=== PATIENT | male | born 1960 | race Caucasian/White ===

== ENCOUNTER 2022-07-29 13:17 | Emergency (ER) | payer OTHER, MEDICARE ==
[2022-07-29] MEDS ORDERED: LIDOCAINE 5% TOPICAL PATCH TP ONE (13:30)
[2022-07-29 13:39] VITALS: BP 137/90; PULSE 71; RESP 20; TEMP 98.3; BMI 36.2
[2022-07-29] MEDS ORDERED: LIDOCAINE 5% TOPICAL PATCH ONE (13:49)
[2022-07-29] MEDS ORDERED: LIDOCAINE PATCH REMOVAL MC SCH (22:00)
== END 2022-07-29 13:58 | disposition home or self-care (01) ==
LOC: FER 13:17
DX: M54.50 Low back pain, unspecified (principal); G89.29 Other chronic pain; Z76.0 Encounter for issue of repeat prescription
CPT/HCPCS: 99283-25

== ENCOUNTER 2022-08-22 18:55 | Emergency (ER) | payer OTHER, MEDICARE ==
[2022-08-22 19:01] VITALS: BP 191/113; PULSE 63; RESP 20; TEMP 98.2; BMI 37.0
[2022-08-22] MEDS ORDERED: TETRACAINE 0.5% OPHTH SOLN 2 ML BOTTLE ONE (19:14)
[2022-08-22] MEDS ORDERED: ACETAMINOPHEN 325 MG TABLET (FP) PO ONE (19:35)
[2022-08-22] MEDS ORDERED: ACETAMINOPHEN 325 MG TABLET (FP) ONE (19:41)
[2022-08-22] MEDS ORDERED: oxyCODONE HCL 5 MG TABLET PO ONE (19:53)
[2022-08-22] MEDS ORDERED: TOBRAMYCIN/DEXAMETHASONE OPHTH. OINTMENT 1 TUBE ONE (19:53)
[2022-08-22] MEDS ORDERED: SULFAMETHOXAZOLE/TRIMETHOPRIM 800MG/160MG D.S. TABLET PO ONE (19:54)
[2022-08-22] MEDS ORDERED: TOBRAMYCIN 0.3% OPHTH SOLN 5 ML BOTTLE OD ONE (19:54)
[2022-08-22] MEDS ORDERED: TOBRAMYCIN/DEXAMETHASONE OPHTH. OINTMENT 1 TUBE OD ONE (19:54)
[2022-08-22] MEDS ORDERED: oxyCODONE HCL 5 MG TABLET ONE (19:56)
[2022-08-22] MEDS ORDERED: TOBRAMYCIN 0.3% OPHTH SOLN 5 ML BOTTLE ONE (19:56)
[2022-08-22] MEDS ORDERED: SULFAMETHOXAZOLE/TRIMETHOPRIM 800MG/160MG D.S. TABLET ONE (19:59)
== END 2022-08-22 20:03 | disposition home or self-care (01) ==
LOC: FER 18:55
DX: H57.11 Ocular pain, right eye (principal); H00.021 Hordeolum internum right upper eyelid
CPT/HCPCS: 76512; 99284-25

== ENCOUNTER 2022-09-09 13:28 | Emergency (ER) | payer OTHER, MEDICARE ==
[2022-09-09 13:48] VITALS: BP 158/101; PULSE 98; RESP 18; TEMP 98; BMI 36.9
[2022-09-09] MEDS ORDERED: HYDROmorphone HCL 2 MG TABLET PO ONE ×2 (13:51→14:35)
[2022-09-09] MEDS ORDERED: HYDROmorphone HCL 2 MG TABLET ONE ×2 (13:56→14:40)
== END 2022-09-09 14:50 | disposition home or self-care (01) ==
LOC: FER 13:28
DX: S39.012A Strain of muscle, fascia and tendon of lower back, initial encounter (principal); X50.0XXA Overexertion from strenuous movement or load, initial encounter
CPT/HCPCS: 72100-TC-FY; 81003; 81015; 99284-25

== ENCOUNTER 2022-09-15 11:29 | Emergency (ER) | payer OTHER, MEDICARE ==
[2022-09-15 11:44] VITALS: BP 182/99; PULSE 67; RESP 18; TEMP 98.3; BMI 36.9
== END 2022-09-15 12:55 | disposition home or self-care (01) ==
LOC: FER 11:29
DX: M54.50 Low back pain, unspecified (principal); M96.1 Postlaminectomy syndrome, not elsewhere classified
CPT/HCPCS: 99283-25

== ENCOUNTER 2022-09-15 19:31 | Emergency (ER) | payer OTHER, MEDICARE ==
[2022-09-15] MEDS ORDERED: HYDROmorphone HCL 2 MG TABLET PO ONE (19:33)
[2022-09-15 19:44] VITALS: BP 190/116; PULSE 70; RESP 18; TEMP 98.7; BMI 36.9
[2022-09-15] MEDS ORDERED: HYDROmorphone HCL 2 MG TABLET ONE (19:44)
== END 2022-09-15 20:00 | disposition home or self-care (01) ==
LOC: FER 19:31
DX: M54.50 Low back pain, unspecified (principal); G89.29 Other chronic pain; F11.90 Opioid use, unspecified, uncomplicated
CPT/HCPCS: 99283-25

== ENCOUNTER 2022-10-01 13:40 | Emergency (ER) | payer OTHER, MEDICARE ==
[2022-10-01 13:51] VITALS: BMI 36.8
[2022-10-01] MEDS ORDERED: LIDOCAINE 5% TOPICAL PATCH TP ONE (13:55)
[2022-10-01] MEDS ORDERED: oxyCODONE HCL 5 MG TABLET PO ONE (13:55)
[2022-10-01] MEDS ORDERED: ACETAMINOPHEN 500 MG TABLET (FP) PO ONE (13:55)
[2022-10-01] MEDS ORDERED: METHOCARBAMOL 500 MG TABLET PO ONE (13:58)
[2022-10-01] MEDS ORDERED: ACETAMINOPHEN 500 MG TABLET (FP) ONE (14:00)
[2022-10-01] MEDS ORDERED: LIDOCAINE 5% TOPICAL PATCH ONE (14:01)
[2022-10-01] MEDS ORDERED: METHOCARBAMOL 500 MG TABLET ONE (14:01)
[2022-10-01] MEDS ORDERED: oxyCODONE HCL 5 MG TABLET ONE (14:01)
[2022-10-01 14:43] VITALS: BP 180/120; PULSE 86; RESP 16; TEMP 98.2
[2022-10-01] MEDS ORDERED: LIDOCAINE PATCH REMOVAL MC SCH (22:00)
== END 2022-10-01 15:16 | disposition home or self-care (01) ==
LOC: FER 13:40
DX: F11.90 Opioid use, unspecified, uncomplicated (principal); M54.50 Low back pain, unspecified
CPT/HCPCS: 99283-25

== ENCOUNTER 2022-10-11 20:08 | Emergency (ER) | payer OTHER, MEDICARE ==
[2022-10-11 20:35] VITALS: BP 149/100; PULSE 77; RESP 20; TEMP 98.5; BMI 36.6
[2022-10-11] MEDS ORDERED: HYDROmorphone HCl 2 MG/ML VIAL IM ONE (21:28)
[2022-10-11] MEDS ORDERED: HYDROmorphone HCl 2 MG/ML VIAL ONE (21:32)
== END 2022-10-11 21:57 | disposition home or self-care (01) ==
LOC: FER 20:08
PROC: 3E023GC Introduction of Other Therapeutic Substance into Muscle, Percutaneous Approach (ICD-10-PCS; principal; 2022-10-11)
DX: M54.50 Low back pain, unspecified (principal); M96.1 Postlaminectomy syndrome, not elsewhere classified; Z79.891 Long term (current) use of opiate analgesic
CPT/HCPCS: 99284-25

== ENCOUNTER 2022-10-29 15:37 | Emergency (ER) | payer OTHER, MEDICARE ==
[2022-10-29] MEDS ORDERED: HYDROmorphone HCl 2 MG/ML VIAL IM ONE (15:55)
[2022-10-29] MEDS ORDERED: HYDROmorphone HCl 2 MG/ML VIAL ONE (16:16)
== END 2022-10-29 17:04 | disposition home or self-care (01) ==
LOC: FER 15:37
PROC: 3E023GC Introduction of Other Therapeutic Substance into Muscle, Percutaneous Approach (ICD-10-PCS; principal; 2022-10-29)
DX: M54.50 Low back pain, unspecified (principal); S39.012A Strain of muscle, fascia and tendon of lower back, initial encounter; G89.29 Other chronic pain; X58.XXXA Exposure to other specified factors, initial encounter
CPT/HCPCS: 99284-25

== ENCOUNTER 2022-10-30 02:01 | Emergency (ER) | payer OTHER, MEDICARE ==
[2022-10-30 02:12] VITALS: BP 122/82; PULSE 62; RESP 16; TEMP 98.1; BMI 34.3
== END 2022-10-30 02:21 | disposition home or self-care (01) ==
LOC: FER 02:01
DX: M54.50 Low back pain, unspecified (principal); Z79.01 Long term (current) use of anticoagulants
CPT/HCPCS: 99283-25

== ENCOUNTER 2022-10-30 20:09 | Emergency (ER) | payer OTHER, MEDICARE ==
[2022-10-30 20:29] VITALS: RESP 18; BMI 34.4
[2022-10-30] MEDS ORDERED: HYDROmorphone HCl 2 MG/ML VIAL IM ONE (21:17)
[2022-10-30] MEDS ORDERED: HYDROmorphone HCl 2 MG/ML VIAL ONE (21:18)
[2022-10-30] MEDS ORDERED: LIDOCAINE 5% TOPICAL PATCH TP ONE (21:20)
[2022-10-30] MEDS ORDERED: LIDOCAINE 5% TOPICAL PATCH ONE (21:23)
[2022-10-30 21:43] VITALS: BP 158/103; PULSE 81; TEMP 98.9
[2022-10-30] MEDS ORDERED: LIDOCAINE PATCH REMOVAL MC ONE (22:00)
== END 2022-10-30 22:00 | disposition home or self-care (01) ==
LOC: FER 20:09
PROC: 3E023GC Introduction of Other Therapeutic Substance into Muscle, Percutaneous Approach (ICD-10-PCS; principal; 2022-10-30)
DX: M54.50 Low back pain, unspecified (principal); G89.29 Other chronic pain
CPT/HCPCS: 99284-25

== ENCOUNTER 2022-11-07 12:29 | Emergency (ER) | payer OTHER, MEDICARE ==
[2022-11-07 12:43] VITALS: BP 169/100; PULSE 81; RESP 18; TEMP 98.2; BMI 36.8
[2022-11-07] MEDS ORDERED: oxyCODONE HCL 5 MG TABLET PO ONE ×2 (13:10→13:15)
[2022-11-07] MEDS ORDERED: oxyCODONE HCL 5 MG TABLET ONE ×2 (13:14→13:15)
== END 2022-11-07 13:35 | disposition home or self-care (01) ==
LOC: FER 12:29
DX: M54.9 Dorsalgia, unspecified (principal); G89.29 Other chronic pain
CPT/HCPCS: 99283-25

== ENCOUNTER 2022-12-30 00:20 | Emergency (ER) | payer OTHER, MEDICARE ==
[2022-12-30 00:36] VITALS: TEMP 98.5; BMI 36.8
[2022-12-30] MEDS ORDERED: HYDROmorphone HCl 2 MG/ML VIAL IM STA (00:41)
[2022-12-30] MEDS ORDERED: LIDOCAINE 5% TOPICAL PATCH ONE (00:41)
[2022-12-30] MEDS ORDERED: HYDROmorphone HCl 2 MG/ML VIAL ONE (00:41)
[2022-12-30] MEDS ORDERED: LIDOCAINE 5% TOPICAL PATCH TP ONE (00:42)
[2022-12-30 01:14] VITALS: BP 154/94; PULSE 78; RESP 16
[2022-12-30] MEDS ORDERED: LIDOCAINE PATCH REMOVAL MC ONE (12:00)
== END 2022-12-30 01:23 | disposition home or self-care (01) ==
LOC: FER 00:20
PROC: 3E023GC Introduction of Other Therapeutic Substance into Muscle, Percutaneous Approach (ICD-10-PCS; principal; 2022-12-30)
DX: M54.9 Dorsalgia, unspecified (principal); M96.1 Postlaminectomy syndrome, not elsewhere classified; G89.29 Other chronic pain; Z79.891 Long term (current) use of opiate analgesic
CPT/HCPCS: 99284-25

== ENCOUNTER 2023-01-04 22:05 | Emergency (ER) | payer OTHER, MEDICARE ==
[2023-01-04 22:19] VITALS: PULSE 90; RESP 20; TEMP 98; BMI 36.8
[2023-01-04] MEDS ORDERED: HYDROmorphone HCl 2 MG/ML VIAL IM ONE (22:28)
[2023-01-04] MEDS ORDERED: HYDROmorphone HCl 2 MG/ML VIAL ONE (22:38)
[2023-01-04 23:33] VITALS: BP 138/102
== END 2023-01-04 23:36 | disposition home or self-care (01) ==
LOC: FER 22:05
PROC: 3E023GC Introduction of Other Therapeutic Substance into Muscle, Percutaneous Approach (ICD-10-PCS; principal; 2023-01-04)
DX: M54.50 Low back pain, unspecified (principal)
CPT/HCPCS: 99284-25

== ENCOUNTER 2023-01-17 21:41 | Emergency (ER) | payer OTHER, MEDICARE ==
[2023-01-17 21:53] VITALS: BP 160/94; PULSE 68; RESP 20; TEMP 97.9
[2023-01-17] MEDS ORDERED: HYDROmorphone HCl 2 MG/ML VIAL IM ONE (21:54)
[2023-01-17] MEDS ORDERED: HYDROmorphone HCl 2 MG/ML VIAL ONE (21:56)
== END 2023-01-17 22:30 | disposition home or self-care (01) ==
LOC: FER 21:41 → SUPCPDRO 21:41 → FER 22:30
PROC: 3E023GC Introduction of Other Therapeutic Substance into Muscle, Percutaneous Approach (ICD-10-PCS; principal; 2023-01-17)
DX: M54.50 Low back pain, unspecified (principal); F11.20 Opioid dependence, uncomplicated
CPT/HCPCS: 99284-25

== ENCOUNTER 2023-02-09 03:33 | Emergency (ER) | payer OTHER, MEDICARE ==
[2023-02-09] MEDS ORDERED: HYDROmorphone HCl 2 MG/ML VIAL IM STA (03:53)
[2023-02-09 03:57] VITALS: BP 179/110; PULSE 75; RESP 18; TEMP 98.7; BMI 24.3
[2023-02-09] MEDS ORDERED: HYDROmorphone HCl 2 MG/ML VIAL ONE (03:59)
== END 2023-02-09 04:10 | disposition home or self-care (01) ==
LOC: FER 03:33
PROC: 3E023GC Introduction of Other Therapeutic Substance into Muscle, Percutaneous Approach (ICD-10-PCS; principal; 2023-02-09)
DX: M54.50 Low back pain, unspecified (principal)
CPT/HCPCS: 99284-25

== ENCOUNTER 2023-02-20 21:41 | Emergency (ER) | payer OTHER, MEDICARE ==
[2023-02-20] MEDS ORDERED: LIDOCAINE PATCH REMOVAL MC SCH (22:00)
[2023-02-20 22:01] VITALS: BP 116/73; PULSE 67; RESP 16; TEMP 98.2; BMI 36.8
[2023-02-20] MEDS ORDERED: LIDOCAINE 5% TOPICAL PATCH TP ONE (22:15)
[2023-02-20] MEDS ORDERED: HYDROmorphone HCl 2 MG/ML VIAL IM ONE (22:16)
[2023-02-20] MEDS ORDERED: HYDROmorphone HCL/PF 1 MG/ML VIAL ONE (22:22)
[2023-02-20] MEDS ORDERED: LIDOCAINE 5% TOPICAL PATCH ONE (22:22)
== END 2023-02-20 22:49 | disposition home or self-care (01) ==
LOC: FER 21:41
PROC: 3E023GC Introduction of Other Therapeutic Substance into Muscle, Percutaneous Approach (ICD-10-PCS; principal; 2023-02-20)
DX: M54.9 Dorsalgia, unspecified (principal); G89.29 Other chronic pain; F11.90 Opioid use, unspecified, uncomplicated
CPT/HCPCS: 99284-25

== ENCOUNTER 2023-02-23 12:02 | Emergency (ER) | payer OTHER, MEDICARE ==
[2023-02-23] MEDS ORDERED: HYDROmorphone HCl 2 MG/ML VIAL IM ONE (12:40)
[2023-02-23 12:41] VITALS: BP 167/101; PULSE 65; RESP 18; TEMP 98.7; BMI 36.8
[2023-02-23] MEDS ORDERED: HYDROmorphone HCl 2 MG/ML VIAL ONE (12:44)
== END 2023-02-23 13:48 | disposition home or self-care (01) ==
LOC: FER 12:02
PROC: 3E023GC Introduction of Other Therapeutic Substance into Muscle, Percutaneous Approach (ICD-10-PCS; principal; 2023-02-23)
DX: M54.9 Dorsalgia, unspecified (principal); G89.18 Other acute postprocedural pain
CPT/HCPCS: 99284-25

== ENCOUNTER 2023-02-24 11:02 | Emergency (ER) | payer OTHER, MEDICARE ==
[2023-02-24 11:12] VITALS: BP 179/108; PULSE 65; RESP 18; TEMP 99; BMI 36.8
[2023-02-24] MEDS ORDERED: HYDROmorphone HCl 2 MG/ML VIAL IM ONE (12:27)
[2023-02-24] MEDS ORDERED: HYDROmorphone HCl 2 MG/ML VIAL ONE (12:34)
== END 2023-02-24 13:59 | disposition home or self-care (01) ==
LOC: FER 11:02
PROC: 3E023GC Introduction of Other Therapeutic Substance into Muscle, Percutaneous Approach (ICD-10-PCS; principal; 2023-02-24)
DX: M54.50 Low back pain, unspecified (principal)
CPT/HCPCS: 99284-25

== ENCOUNTER 2023-02-25 12:03 | Emergency (ER) | payer OTHER, MEDICARE ==
[2023-02-25 12:08] VITALS: BP 168/104; PULSE 67; RESP 18; TEMP 98; BMI 36.8
[2023-02-25] MEDS ORDERED: HYDROmorphone HCl 2 MG/ML VIAL IM ONE (12:11)
[2023-02-25] MEDS ORDERED: HYDROmorphone HCl 2 MG/ML VIAL ONE (12:16)
== END 2023-02-25 12:27 | disposition home or self-care (01) ==
LOC: FER 12:03
PROC: 3E023GC Introduction of Other Therapeutic Substance into Muscle, Percutaneous Approach (ICD-10-PCS; principal; 2023-02-25)
DX: M54.50 Low back pain, unspecified (principal); G89.29 Other chronic pain
CPT/HCPCS: 99284-25

== ENCOUNTER 2023-02-26 11:55 | Emergency (ER) | payer OTHER, MEDICARE ==
[2023-02-26] MEDS ORDERED: HYDROmorphone HCl 2 MG/ML VIAL IM ONE (11:59)
[2023-02-26 12:18] VITALS: BP 155/68; PULSE 66; RESP 20; TEMP 98.7; BMI 36.6
[2023-02-26] MEDS ORDERED: HYDROmorphone HCl 2 MG/ML VIAL ONE (12:19)
== END 2023-02-26 12:25 | disposition home or self-care (01) ==
LOC: FER 11:55
PROC: 3E023GC Introduction of Other Therapeutic Substance into Muscle, Percutaneous Approach (ICD-10-PCS; principal; 2023-02-26)
DX: M54.42 Lumbago with sciatica, left side (principal); G89.29 Other chronic pain; K08.89 Other specified disorders of teeth and supporting structures
CPT/HCPCS: 99284-25

== ENCOUNTER 2023-03-02 07:35 | Emergency (ER) | payer OTHER, MEDICARE ==
[2023-03-02 07:51] VITALS: BP 155/93; PULSE 66; RESP 18; TEMP 98.2; BMI 36.8
[2023-03-02] MEDS ORDERED: oxyCODONE HCL 5 MG TABLET PO ONE (07:55)
[2023-03-02] MEDS ORDERED: oxyCODONE HCL 5 MG TABLET ONE (08:02)
== END 2023-03-02 08:27 | disposition home or self-care (01) ==
LOC: FER 07:35
DX: M54.9 Dorsalgia, unspecified (principal); F11.20 Opioid dependence, uncomplicated
CPT/HCPCS: 99283-25

== ENCOUNTER 2023-03-03 09:51 | Emergency (ER) | payer OTHER, MEDICARE ==
[2023-03-03 10:00] VITALS: BP 168/92; PULSE 66; RESP 17; TEMP 98.6; BMI 36.8
[2023-03-03] MEDS ORDERED: HYDROmorphone HCl 2 MG/ML VIAL IM ONE (10:09)
[2023-03-03] MEDS ORDERED: HYDROmorphone HCl 2 MG/ML VIAL ONE (10:20)
== END 2023-03-03 11:00 | disposition home or self-care (01) ==
LOC: FER 09:51
PROC: 3E023GC Introduction of Other Therapeutic Substance into Muscle, Percutaneous Approach (ICD-10-PCS; principal; 2023-03-03)
DX: M54.50 Low back pain, unspecified (principal)
CPT/HCPCS: 99284-25

== ENCOUNTER 2023-03-05 19:57 | Emergency (ER) | payer OTHER, MEDICARE ==
[2023-03-05 20:04] VITALS: BP 158/105; PULSE 89; RESP 18; TEMP 98.1; BMI 36.8
[2023-03-05] MEDS ORDERED: HYDROmorphone HCl 2 MG/ML VIAL ONE (21:14)
[2023-03-05] MEDS ORDERED: HYDROmorphone HCl 2 MG/ML VIAL IM ONE (21:16)
== END 2023-03-05 21:50 | disposition home or self-care (01) ==
LOC: FER 19:57
PROC: 3E023GC Introduction of Other Therapeutic Substance into Muscle, Percutaneous Approach (ICD-10-PCS; principal; 2023-03-05)
DX: M54.50 Low back pain, unspecified (principal)
CPT/HCPCS: 99284-25

== ENCOUNTER 2023-03-07 03:49 | Emergency (ER) | payer OTHER, MEDICARE ==
[2023-03-07 03:53] VITALS: BP 165/89; PULSE 98; RESP 18; TEMP 98.5; BMI 36.8
[2023-03-07] MEDS ORDERED: oxyCODONE HCL 5 MG TABLET PO ONE (04:05)
[2023-03-07] MEDS ORDERED: LIDOCAINE 5% TOPICAL PATCH TP ONE (04:05)
[2023-03-07] MEDS ORDERED: LIDOCAINE 5% TOPICAL PATCH ONE (04:12)
[2023-03-07] MEDS ORDERED: oxyCODONE HCL 5 MG TABLET ONE (04:12)
[2023-03-07] MEDS ORDERED: LIDOCAINE PATCH REMOVAL MC SCH (22:00)
== END 2023-03-07 04:55 | disposition home or self-care (01) ==
LOC: FER 03:49
DX: M54.50 Low back pain, unspecified (principal); G89.29 Other chronic pain; G47.00 Insomnia, unspecified
CPT/HCPCS: 99283-25

== ENCOUNTER 2023-03-19 21:42 | Emergency (ER) | payer OTHER, MEDICARE ==
[2023-03-19 21:53] VITALS: BP 155/91; PULSE 70; RESP 16; TEMP 98.6; BMI 36.9
[2023-03-19] MEDS ORDERED: HYDROmorphone HCl 2 MG/ML VIAL IM STA (22:08)
[2023-03-19] MEDS ORDERED: LIDOCAINE 5% TOPICAL PATCH TP ONE (22:09)
[2023-03-19] MEDS ORDERED: HYDROmorphone HCl 2 MG/ML VIAL ONE (22:11)
[2023-03-19] MEDS ORDERED: LIDOCAINE 5% TOPICAL PATCH ONE (22:12)
[2023-03-20] MEDS ORDERED: LIDOCAINE PATCH REMOVAL MC ONE (22:00)
== END 2023-03-19 22:19 | disposition home or self-care (01) ==
LOC: FER 21:42
PROC: 3E023GC Introduction of Other Therapeutic Substance into Muscle, Percutaneous Approach (ICD-10-PCS; principal; 2023-03-19)
DX: M54.50 Low back pain, unspecified (principal); M96.1 Postlaminectomy syndrome, not elsewhere classified
CPT/HCPCS: 99284-25

== ENCOUNTER 2023-03-29 11:44 | Emergency (ER) | payer OTHER, MEDICARE ==
[2023-03-29] MEDS ORDERED: HYDROmorphone HCl 2 MG/ML VIAL IM ONE (11:59)
[2023-03-29] MEDS ORDERED: HYDROmorphone HCl 2 MG/ML VIAL ONE (12:00)
[2023-03-29 12:17] VITALS: BP 110/87; PULSE 62; RESP 18; TEMP 98.3; BMI 36.9
[2023-03-29] MEDS ORDERED: LIDOCAINE 5% TOPICAL PATCH TP ONE (12:20)
[2023-03-29] MEDS ORDERED: LIDOCAINE 5% TOPICAL PATCH ONE (12:27)
[2023-03-29] MEDS ORDERED: LIDOCAINE PATCH REMOVAL MC ONE (22:00)
== END 2023-03-29 12:54 | disposition home or self-care (01) ==
LOC: FER 11:44 → SUPCPDRO 11:44 → FER 12:54
PROC: 3E023GC Introduction of Other Therapeutic Substance into Muscle, Percutaneous Approach (ICD-10-PCS; principal; 2023-03-29)
DX: M54.50 Low back pain, unspecified (principal); M96.1 Postlaminectomy syndrome, not elsewhere classified; F11.90 Opioid use, unspecified, uncomplicated
CPT/HCPCS: 99284-25

== ENCOUNTER 2023-04-01 00:24 | Emergency (ER) | payer OTHER, MEDICARE ==
[2023-04-01 00:31] VITALS: BP 178/106; PULSE 65; RESP 16; TEMP 97.9; BMI 37.5
[2023-04-01] MEDS ORDERED: ACETAMINOPHEN 325 MG TABLET (FP) PO ONE (00:49)
[2023-04-01] MEDS ORDERED: LIDOCAINE 5% TOPICAL PATCH TP ONE (00:50)
[2023-04-01] MEDS ORDERED: ACETAMINOPHEN 325 MG TABLET (FP) ONE (00:53)
[2023-04-01] MEDS ORDERED: LIDOCAINE 5% TOPICAL PATCH ONE (00:53)
[2023-04-01] MEDS ORDERED: LIDOCAINE PATCH REMOVAL MC SCH (22:00)
== END 2023-04-01 01:06 | disposition home or self-care (01) ==
LOC: FER 00:24
DX: M54.50 Low back pain, unspecified (principal)
CPT/HCPCS: 99283-25

== ENCOUNTER 2023-04-16 23:16 | Emergency (ER) | payer OTHER, MEDICARE ==
[2023-04-16] MEDS ORDERED: LIDOCAINE 5% TOPICAL PATCH ONE (23:30)
[2023-04-16] MEDS: LIDOCAINE PATCH REMOVAL MC SCH (23:34)
[2023-04-16] MEDS: LIDOCAINE 5% TOPICAL PATCH TP ONE (23:34)
[2023-04-16 23:40] VITALS: BP 181/118; PULSE 75; RESP 18; TEMP 98.5; BMI 37.5
[2023-04-16] MEDS ORDERED: HYDROmorphone HCl 2 MG/ML VIAL ONE (23:47)
[2023-04-16] MEDS: HYDROmorphone HCl 2 MG/ML VIAL IM ONE (23:49)
== END 2023-04-17 00:27 | disposition home or self-care (01) ==
LOC: FER 23:16
PROC: 3E023GC Introduction of Other Therapeutic Substance into Muscle, Percutaneous Approach (ICD-10-PCS; principal; 2023-04-16)
DX: M54.9 Dorsalgia, unspecified (principal)
CPT/HCPCS: 99284-25

== ENCOUNTER 2023-04-23 20:36 | Emergency (ER) | payer OTHER, MEDICARE ==
[2023-04-23 20:58] VITALS: BP 170/102; PULSE 70; RESP 19; TEMP 98.6; BMI 37.5
[2023-04-23] MEDS ORDERED: HYDROmorphone HCl 2 MG/ML VIAL ONE (21:11)
[2023-04-23] MEDS: HYDROmorphone HCl 2 MG/ML VIAL IM STA (21:14)
== END 2023-04-23 21:20 | disposition home or self-care (01) ==
LOC: FER 20:36
PROC: 3E023GC Introduction of Other Therapeutic Substance into Muscle, Percutaneous Approach (ICD-10-PCS; principal; 2023-04-23)
DX: M54.50 Low back pain, unspecified (principal); G89.29 Other chronic pain
CPT/HCPCS: 99284-25

== ENCOUNTER 2023-04-24 22:40 | Emergency (ER) | payer OTHER, MEDICARE ==
[2023-04-24 22:51] VITALS: BP 139/89; PULSE 78; RESP 18; TEMP 99; BMI 35.6
[2023-04-24] MEDS ORDERED: oxyCODONE HCL 5 MG TABLET ONE (23:08)
[2023-04-24] MEDS ORDERED: CYCLOBENZAPRINE HCL 5 MG TABLET ONE (23:08)
[2023-04-24] MEDS: oxyCODONE HCL 5 MG TABLET PO ONE (23:11)
== END 2023-04-24 23:34 | disposition home or self-care (01) ==
LOC: FER 22:40
DX: M96.1 Postlaminectomy syndrome, not elsewhere classified (principal); F11.90 Opioid use, unspecified, uncomplicated; M54.50 Low back pain, unspecified
CPT/HCPCS: 99283-25

== ENCOUNTER 2023-05-20 07:06 | Emergency (ER) | payer OTHER, MEDICARE ==
[2023-05-20 07:16] VITALS: BP 138/74; PULSE 74; RESP 18; TEMP 97.9; BMI 35.2
[2023-05-20] MEDS ORDERED: LIDOCAINE 5% TOPICAL PATCH ONE (07:43)
[2023-05-20] MEDS ORDERED: cloNIDine HCL 0.1 MG TABLET ONE (07:43)
[2023-05-20] MEDS: cloNIDine HCL 0.1 MG TABLET PO ONE (07:44)
[2023-05-20] MEDS: LIDOCAINE 5% TOPICAL PATCH TP ONE (07:45)
[2023-05-20] MEDS ORDERED: LIDOCAINE PATCH REMOVAL MC ONE (22:00)
== END 2023-05-20 07:52 | disposition home or self-care (01) ==
LOC: FER 07:06
DX: F11.93 Opioid use, unspecified with withdrawal (principal)
CPT/HCPCS: 99283-25

== ENCOUNTER 2023-05-22 07:34 | Emergency (ER) | payer OTHER, MEDICARE ==
[2023-05-22 07:49] VITALS: BP 165/75; PULSE 86; RESP 20; TEMP 98.3; BMI 32.5
[2023-05-22] MEDS ORDERED: HYDROmorphone HCl 2 MG/ML VIAL ONE (08:39)
[2023-05-22] MEDS: HYDROmorphone HCl 2 MG/ML VIAL IM ONE (08:59)
== END 2023-05-22 08:58 | disposition home or self-care (01) ==
LOC: FER 07:34
PROC: 3E023GC Introduction of Other Therapeutic Substance into Muscle, Percutaneous Approach (ICD-10-PCS; principal; 2023-05-22)
DX: M54.50 Low back pain, unspecified (principal); G89.29 Other chronic pain; M96.1 Postlaminectomy syndrome, not elsewhere classified
CPT/HCPCS: 99284-25

== ENCOUNTER 2023-05-26 00:39 | Emergency (ER) | payer OTHER, MEDICARE ==
[2023-05-26 00:59] VITALS: BP 136/95; PULSE 80; RESP 16; TEMP 98.5; BMI 34.3
== END 2023-05-26 01:29 | disposition home or self-care (01) ==
LOC: FER 00:39
DX: M54.50 Low back pain, unspecified (principal); G89.29 Other chronic pain
CPT/HCPCS: 99283-25

== ENCOUNTER 2023-06-04 20:20 | Emergency (ER) | payer OTHER, MEDICARE ==
[2023-06-04] MEDS ORDERED: HYDROmorphone HCl 2 MG/ML VIAL ONE (20:36)
[2023-06-04] MEDS ORDERED: ONDANSETRON *ODT* 4 MG TABLET ONE (20:36)
[2023-06-04] MEDS: HYDROmorphone HCl 2 MG/ML VIAL IM ONE (20:40)
[2023-06-04] MEDS: ONDANSETRON *ODT* 4 MG TABLET SL ONE (20:41)
[2023-06-04 20:43] VITALS: BP 147/97; PULSE 73; RESP 18; TEMP 98.1; BMI 21.2
== END 2023-06-04 20:45 | disposition home or self-care (01) ==
LOC: FER 20:20
PROC: 3E023GC Introduction of Other Therapeutic Substance into Muscle, Percutaneous Approach (ICD-10-PCS; principal; 2023-06-04)
DX: M54.50 Low back pain, unspecified (principal); G89.29 Other chronic pain
CPT/HCPCS: 96372; 99284-25; Q0162

== ENCOUNTER 2023-06-15 11:00 | Emergency (ER) | payer OTHER, MEDICARE ==
[2023-06-15 11:06] VITALS: BP 150/100; PULSE 65; RESP 20; TEMP 98.3; BMI 34.2
[2023-06-15] MEDS ORDERED: HYDROmorphone HCl 2 MG/ML VIAL ONE (11:17)
[2023-06-15] MEDS: HYDROmorphone HCl 2 MG/ML VIAL IM ONE (11:22)
== END 2023-06-15 11:29 | disposition home or self-care (01) ==
LOC: FER 11:00
PROC: 3E023GC Introduction of Other Therapeutic Substance into Muscle, Percutaneous Approach (ICD-10-PCS; principal; 2023-06-15)
DX: M54.50 Low back pain, unspecified (principal); G89.29 Other chronic pain
CPT/HCPCS: 99284-25

== ENCOUNTER 2023-06-16 05:52 | Emergency (ER) | payer OTHER, MEDICARE ==
[2023-06-16 06:01] VITALS: BP 130/100; PULSE 87; RESP 18; TEMP 98.2; BMI 34.2
[2023-06-16] MEDS ORDERED: HYDROmorphone HCl 2 MG/ML VIAL ONE (06:09)
[2023-06-16] MEDS: HYDROmorphone HCl 2 MG/ML VIAL IM STA (06:11)
== END 2023-06-16 06:56 | disposition home or self-care (01) ==
LOC: FER 05:52
PROC: 3E023NZ Introduction of Analgesics, Hypnotics, Sedatives into Muscle, Percutaneous Approach (ICD-10-PCS; principal; 2023-06-16)
DX: R10.9 Unspecified abdominal pain (principal); N20.0 Calculus of kidney
CPT/HCPCS: 99284-25

== ENCOUNTER 2023-06-21 16:13 | Emergency (ER) | payer OTHER, MEDICARE ==
[2023-06-21] MEDS ORDERED: HYDROmorphone HCl 2 MG/ML VIAL ONE (16:33)
[2023-06-21 16:36] VITALS: BP 130/90; PULSE 84; RESP 18; TEMP 98.3; BMI 33.7
[2023-06-21] MEDS: HYDROmorphone HCl 2 MG/ML VIAL IM ONE (16:37)
== END 2023-06-21 16:40 | disposition home or self-care (01) ==
LOC: FER 16:13
PROC: 3E023GC Introduction of Other Therapeutic Substance into Muscle, Percutaneous Approach (ICD-10-PCS; principal; 2023-06-21)
DX: M96.1 Postlaminectomy syndrome, not elsewhere classified (principal); M54.50 Low back pain, unspecified; G89.29 Other chronic pain
CPT/HCPCS: 99284-25

== ENCOUNTER 2023-06-24 12:39 | Emergency (ER) | payer OTHER, MEDICARE ==
[2023-06-24 12:47] VITALS: BP 115/85; PULSE 73; RESP 20; TEMP 98.2; BMI 32.8
[2023-06-24] MEDS ORDERED: HYDROmorphone HCl 2 MG/ML VIAL ONE (13:08)
[2023-06-24] MEDS: HYDROmorphone HCl 2 MG/ML VIAL IM ONE (13:12)
== END 2023-06-24 13:35 | disposition home or self-care (01) ==
LOC: FER 12:39
PROC: 3E023GC Introduction of Other Therapeutic Substance into Muscle, Percutaneous Approach (ICD-10-PCS; principal; 2023-06-24)
DX: R10.9 Unspecified abdominal pain (principal)
CPT/HCPCS: 99284-25

== ENCOUNTER 2023-07-02 22:56 | Emergency (ER) | payer OTHER, MEDICARE ==
[2023-07-02 23:06] VITALS: BP 150/90; PULSE 71; RESP 18; TEMP 97.9; BMI 33.7
[2023-07-02] MEDS ORDERED: HYDROmorphone HCl 2 MG/ML VIAL ONE (23:13)
[2023-07-02] MEDS: HYDROmorphone HCl 2 MG/ML VIAL IM STA (23:16)
== END 2023-07-02 23:19 | disposition home or self-care (01) ==
LOC: FER 22:56
PROC: 3E023GC Introduction of Other Therapeutic Substance into Muscle, Percutaneous Approach (ICD-10-PCS; principal; 2023-07-02)
DX: M54.50 Low back pain, unspecified (principal); G89.29 Other chronic pain; R10.9 Unspecified abdominal pain
CPT/HCPCS: 99284-25

== ENCOUNTER 2023-07-05 21:48 | Emergency (ER) | payer OTHER, MEDICARE ==
[2023-07-05 22:00] VITALS: BP 127/85; PULSE 89; RESP 16; TEMP 98; BMI 33.7
[2023-07-05] MEDS ORDERED: HYDROmorphone HCl 2 MG/ML VIAL ONE (22:13)
[2023-07-05] MEDS: HYDROmorphone HCl 2 MG/ML VIAL IM STA (22:16)
== END 2023-07-05 22:25 | disposition home or self-care (01) ==
LOC: FER 21:48
PROC: 3E023GC Introduction of Other Therapeutic Substance into Muscle, Percutaneous Approach (ICD-10-PCS; principal; 2023-07-05)
DX: M54.50 Low back pain, unspecified (principal); G89.29 Other chronic pain
CPT/HCPCS: 99284-25

== ENCOUNTER 2023-07-07 04:13 | Day surgery (SDC) | payer OTHER, MEDICARE ==
[2023-07-02 13:35] VITALS: BMI 33.7
[2023-07-07] MEDS ORDERED: ACETAMINOPHEN 1000 MG/100 ML BAG IVPB ONE (12:59)
[2023-07-07] MEDS ORDERED: DEXTROSE 5%-0.45% SALINE 1,000 ML IV SCH (13:00)
[2023-07-07] MEDS ORDERED: MIDAZOLAM HCL 2 MG/2 ML SINGLE DOSE VIAL ONE ×2 (13:17→13:25)
[2023-07-07] MEDS ORDERED: FENTANYL CITRATE/PF 50 MCG/ML VIAL ONE (13:17)
[2023-07-07] MEDS ORDERED: ONDANSETRON 4 MG/2 ML VIAL ONE (13:45)
[2023-07-07 14:29] VITALS: RESP 18
[2023-07-07 15:06] VITALS: BP 160/96; PULSE 64; TEMP 98
== END 2023-07-07 14:58 | disposition home or self-care (01) ==
LOC: JASU-SURG 04:13
PROVIDERS: ATTEND Urology
PROC: 0TF3XZZ Fragmentation in Right Kidney Pelvis, External Approach (ICD-10-PCS; principal; 2023-07-07 13:00)
DX: N20.0 Calculus of kidney (principal)

== ENCOUNTER 2023-07-08 20:49 | Emergency (ER) | payer OTHER, MEDICARE ==
[2023-07-08 21:03] VITALS: BP 125/74; PULSE 67; RESP 18; TEMP 98.7; BMI 33.7
[2023-07-08] MEDS ORDERED: HYDROmorphone HCl 2 MG/ML VIAL ONE (21:25)
[2023-07-08] MEDS: HYDROmorphone HCl 2 MG/ML VIAL IM STA (21:30)
[2023-07-08] MEDS: LIDOCAINE 5% TOPICAL PATCH TP ONE (21:30)
[2023-07-08] MEDS ORDERED: LIDOCAINE 5% TOPICAL PATCH ONE (21:31)
[2023-07-08] MEDS ORDERED: LIDOCAINE PATCH REMOVAL MC SCH (22:00)
== END 2023-07-08 21:34 | disposition home or self-care (01) ==
LOC: FER 20:49
PROC: 3E023GC Introduction of Other Therapeutic Substance into Muscle, Percutaneous Approach (ICD-10-PCS; principal; 2023-07-08)
DX: M54.50 Low back pain, unspecified (principal); G89.29 Other chronic pain; F11.90 Opioid use, unspecified, uncomplicated
CPT/HCPCS: 99284-25

== ENCOUNTER 2023-07-10 12:21 | Emergency (ER) | payer OTHER, MEDICARE ==
[2023-07-10 12:38] VITALS: BP 151/94; PULSE 65; RESP 20; TEMP 97.9; BMI 33.3
[2023-07-10] MEDS ORDERED: HYDROmorphone HCl 2 MG/ML VIAL ONE (12:42)
[2023-07-10] MEDS: HYDROmorphone HCl 2 MG/ML VIAL IM ONE (12:45)
== END 2023-07-10 12:50 | disposition home or self-care (01) ==
LOC: FER 12:21
PROC: 3E023GC Introduction of Other Therapeutic Substance into Muscle, Percutaneous Approach (ICD-10-PCS; principal; 2023-07-10)
DX: M96.1 Postlaminectomy syndrome, not elsewhere classified (principal); M54.50 Low back pain, unspecified; G89.29 Other chronic pain
CPT/HCPCS: 99284-25

== ENCOUNTER 2023-07-11 10:00 | Emergency (ER) | payer OTHER, MEDICARE ==
[2023-07-11 10:06] VITALS: BP 147/89; PULSE 78; RESP 20; TEMP 98.2; BMI 33.3
[2023-07-11] MEDS ORDERED: HYDROmorphone HCl 2 MG/ML VIAL ONE (10:22)
[2023-07-11] MEDS: HYDROmorphone HCl 2 MG/ML VIAL IM ONE (10:23)
== END 2023-07-11 10:32 | disposition home or self-care (01) ==
LOC: FER 10:00
PROC: 3E023NZ Introduction of Analgesics, Hypnotics, Sedatives into Muscle, Percutaneous Approach (ICD-10-PCS; principal; 2023-07-11)
DX: G89.29 Other chronic pain (principal); M54.50 Low back pain, unspecified; Z79.891 Long term (current) use of opiate analgesic
CPT/HCPCS: 99284-25

== ENCOUNTER 2023-07-12 01:56 | Emergency (ER) | payer OTHER, MEDICARE ==
[2023-07-12 02:02] VITALS: BP 156/106; PULSE 81; RESP 18; TEMP 98.5; BMI 33.4
[2023-07-12] MEDS: HYDROmorphone HCl 2 MG/ML VIAL IM ONE (02:15)
[2023-07-12] MEDS ORDERED: HYDROmorphone HCL/PF 1 MG/ML VIAL ONE (02:15)
== END 2023-07-12 02:19 | disposition home or self-care (01) ==
LOC: FER 01:56
PROC: 3E023GC Introduction of Other Therapeutic Substance into Muscle, Percutaneous Approach (ICD-10-PCS; principal; 2023-07-12)
DX: M54.9 Dorsalgia, unspecified (principal); G89.29 Other chronic pain
CPT/HCPCS: 99284-25

== ENCOUNTER 2023-07-13 03:06 | Emergency (ER) | payer OTHER, MEDICARE ==
[2023-07-13 03:12] VITALS: BP 122/76; PULSE 70; RESP 17; TEMP 97.9; BMI 33.7
[2023-07-13] MEDS ORDERED: HYDROmorphone HCL 2 MG TABLET ONE (03:39)
[2023-07-13] MEDS: HYDROmorphone HCL 2 MG TABLET PO ONE (03:41)
== END 2023-07-13 03:51 | disposition home or self-care (01) ==
LOC: FER 03:06
DX: M54.9 Dorsalgia, unspecified (principal); F19.20 Other psychoactive substance dependence, uncomplicated
CPT/HCPCS: 99283-25

== ENCOUNTER 2023-07-13 09:02 | Emergency (ER) | payer OTHER, MEDICARE ==
[2023-07-13 09:14] VITALS: BP 131/84; PULSE 62; RESP 18; TEMP 98.8; BMI 33.3
[2023-07-13] MEDS ORDERED: HYDROmorphone HCl 2 MG/ML VIAL ONE (09:23)
[2023-07-13] MEDS: HYDROmorphone HCl 2 MG/ML VIAL IM ONE (09:24)
== END 2023-07-13 09:44 | disposition home or self-care (01) ==
LOC: FER 09:02
PROC: 3E023GC Introduction of Other Therapeutic Substance into Muscle, Percutaneous Approach (ICD-10-PCS; principal; 2023-07-13)
DX: M96.1 Postlaminectomy syndrome, not elsewhere classified (principal); F11.90 Opioid use, unspecified, uncomplicated; M54.50 Low back pain, unspecified
CPT/HCPCS: 99284-25

== ENCOUNTER 2023-07-14 11:59 | Emergency (ER) | payer OTHER, MEDICARE ==
[2023-07-14 12:10] VITALS: BP 171/110; PULSE 74; RESP 20; TEMP 97.9; BMI 28.7
[2023-07-14] MEDS ORDERED: oxyCODONE HCL 5 MG TABLET ONE (12:27)
[2023-07-14] MEDS: oxyCODONE HCL 5 MG TABLET PO ONE (12:31)
== END 2023-07-14 13:46 | disposition home or self-care (01) ==
LOC: FER 11:59
DX: G89.29 Other chronic pain (principal); M54.50 Low back pain, unspecified
CPT/HCPCS: 99283-25

== ENCOUNTER 2023-07-14 19:48 | Observation (INO) | payer OTHER, MEDICARE ==
[2023-07-14 21:35] LABS: BASO % 0.4 % (0-2.0); EOS % 2.9 % (0-4.5); HEMATOCRIT 39.1 % (35.4-49); HEMOGLOBIN 13.2 GM/dL (11.7-16.9); LYMPH % 14.3 % (8-40); MCH 28.9 pg (25.7-33.7); MCHC 33.7 g/dl (32.0-35.9); MEAN CELL VOLUME 85.8 fl (80-96); MEAN PLT VOLUME 8.3 fl (7.5-11.1); MONO % 7.7 % (3.8-10.2); NEUT % 74.7 % (42.8-82.8); PLATELET COUNT 202 10^3/uL (134-434); RBC 4.56 M/mm3 (4.00-5.60); RDW 15.5 % (11.9-15.9); WHITE BLOOD COUNT 6.1 K/mm3 (4.0-10.0)
[2023-07-14] MEDS ORDERED: HYDROmorphone HCl 2 MG/ML VIAL ONE (21:56)
[2023-07-14] MEDS: HYDROmorphone HCl 2 MG/ML VIAL IVPUSH ONE (22:03)
[2023-07-14 22:04] LABS: POTASSIUM 3.8 mmol/L (3.5-5.1)
[2023-07-14 22:06] LABS: CALCIUM 9.1 mg/dL (8.5-10.1)
[2023-07-14 22:07] LABS: ALBUMIN 3.6 g/dl (3.4-5.0); BLOOD UREA NITROGEN 19.6 mg/dL (7-18)
[2023-07-14 22:11] LABS: TOT PROT 6.8 g/dl (6.4-8.2)
[2023-07-14 22:12] LABS: BILIRUBIN,TOTAL 0.4 mg/dL (0.2-1)
[2023-07-14 23:49] LABS: EPI CELLS 2 /uL (0-25.1); HYALINE CASTS 0 /uL (0-3.1); URINE APPEARANCE CLEAR; URINE BACTERIA 1 /uL (0-1359); URINE BILIRUBIN NEGATIVE (NEGATIVE); URINE COLOR YELLOW; URINE GLUCOSE (UA) NEGATIVE (NEGATIVE); URINE KETONE NEGATIVE (NEGATIVE); URINE LEUK ESTERASE NEGATIVE (NEGATIVE); URINE NITRITE NEGATIVE (NEGATIVE); URINE PROTEIN NEGATIVE (NEGATIVE); URINE RBC 20 /uL (0-23.9); URINE WBC 3 /uL (0-25.8)
[2023-07-15] MEDS ORDERED: DOCUSATE SODIUM 100 MG CAPSULE (FP) PO PRN (00:42)
[2023-07-15] MEDS ORDERED: HYDROmorphone HCl 2 MG/ML VIAL IVPUSH PRN (00:43)
[2023-07-15] MEDS: PSEUDOEPHEDRINE HCL 30 MG TABLET PO ONE (02:08)
[2023-07-15] MEDS: HYDROmorphone HCl 2 MG/ML VIAL IVPB PRN (02:09)
[2023-07-15 03:50] VITALS: BMI 34.0
[2023-07-15] MEDS: FLUTICASONE PROP 0.05% 16 GM NASAL SPRAY NS SCH (06:13)
[2023-07-15] MEDS: oxyCODONE HCL 5 MG TABLET PO SCH (06:14)
[2023-07-15] MEDS: LEVOTHYROXINE NA 200 MCG TABLET PO SCH (06:17)
[2023-07-15] MEDS: INSULIN ASPART SLIDING SCALE (NOVOLOG) 1 VIAL SQ SCH (06:20)
[2023-07-15] MEDS: LABETALOL HCL 200 MG TABLET (FP) PO ONE (06:51)
[2023-07-15] MEDS ORDERED: oxyCODONE HCL 5 MG TABLET PO SCH ×2 (07:00→22:00)
[2023-07-15 07:19] LABS: HEMATOCRIT 37.8 % (35.4-49); HEMOGLOBIN 12.8 GM/dL (11.7-16.9); MCHC 33.7 g/dl (32.0-35.9); MEAN PLT VOLUME 8.3 fl (7.5-11.1); PLATELET COUNT 221 10^3/uL (134-434); RDW 15.8 % (11.9-15.9); WHITE BLOOD COUNT 6.3 K/mm3 (4.0-10.0)
[2023-07-15 07:27] LABS: INR 1.05 (0.83-1.09); PROTHROMBIN TIME (PATIENT) 11.9 SEC (9.7-13.0)
[2023-07-15 07:41] LABS: ALBUMIN 3.9 g/dl (3.4-5.0); BLOOD UREA NITROGEN 16.6 mg/dL (7-18); CALCIUM 9.7 mg/dL (8.5-10.1)
[2023-07-15 07:44] LABS: CREATININE 0.9 mg/dL (0.55-1.3); PHOSPHOROUS 2.5 mg/dL (2.5-4.9)
[2023-07-15 07:46] LABS: BILIRUBIN,TOTAL 0.4 mg/dL (0.2-1); TOT PROT 6.9 g/dl (6.4-8.2)
[2023-07-15] MEDS: LIDOCAINE 5% TOPICAL PATCH TP SCH (09:08)
[2023-07-15] MEDS: ENOXAPARIN NA (PORCINE) 40 MG/0.4 ML DISP.SYRIN SQ SCH (09:09)
[2023-07-15] MEDS: DOCUSATE SODIUM 100 MG CAPSULE (FP) PO SCH (09:10)
[2023-07-15] MEDS: HYDROCHLOROTHIAZIDE 12.5 MG CAPSULE (FP) PO SCH (09:48)
[2023-07-15] MEDS: ISOSORBIDE MONONITRATE 30 MG TAB.SR.24H (FP) PO SCH (09:48)
[2023-07-15 10:47] VITALS: TEMP 98.2
[2023-07-15] MEDS: ASPIRIN COATED 81 MG TABLET.EC PO SCH (13:54)
[2023-07-15 15:14] VITALS: BP 105/58; PULSE 68; RESP 18
[2023-07-15] MEDS ORDERED: LIDOCAINE PATCH REMOVAL MC SCH (22:00)
== END 2023-07-15 15:14 | disposition home or self-care (01) ==
LOC: JERFT 19:48 → JER 19:48 → JERBED 22:02 → INTOOBSV 22:02 → J8W 07-15 01:23
PROVIDERS: ADMIT Internal Medicine; ATTEND Nurse Practitioner Family
PROC: 3E033GC Introduction of Other Therapeutic Substance into Peripheral Vein, Percutaneous Approach (ICD-10-PCS; principal; 2023-07-14)
PROC: 3E013GC Introduction of Other Therapeutic Substance into Subcutaneous Tissue, Percutaneous Approach (ICD-10-PCS; 2023-07-14)
DX: M54.59 Other low back pain (principal); G89.29 Other chronic pain; I10 Essential (primary) hypertension; E78.5 Hyperlipidemia, unspecified; E03.9 Hypothyroidism, unspecified; Z98.84 Bariatric surgery status
CPT/HCPCS: 36415; 80053; 81003; 82962; 83735; 84100; 85025; 85027; 85610; 87086; 93005; 93010; 96374; 96376; 97116-GP; 97161-GP; 99285-25; G0378

== ENCOUNTER 2023-07-17 00:40 | Emergency (ER) | payer OTHER, MEDICARE ==
[2023-07-17 00:50] VITALS: BP 135/92; PULSE 68; RESP 18; TEMP 97.9; BMI 34.1
[2023-07-17] MEDS ORDERED: HYDROmorphone HCl 2 MG/ML VIAL ONE (00:56)
[2023-07-17] MEDS: HYDROmorphone HCl 2 MG/ML VIAL IM STA (00:57)
== END 2023-07-17 01:00 | disposition home or self-care (01) ==
LOC: FER 00:40
PROC: 3E023NZ Introduction of Analgesics, Hypnotics, Sedatives into Muscle, Percutaneous Approach (ICD-10-PCS; principal; 2023-07-17)
DX: G89.29 Other chronic pain (principal); M54.9 Dorsalgia, unspecified
CPT/HCPCS: 99284-25

== ENCOUNTER 2023-07-21 20:32 | Emergency (ER) | payer OTHER, MEDICARE ==
[2023-07-21 20:45] VITALS: BP 138/90; PULSE 82; RESP 17; TEMP 97.6; BMI 33.3
[2023-07-21] MEDS ORDERED: HYDROmorphone HCl 2 MG/ML VIAL ONE (21:25)
[2023-07-21] MEDS: HYDROmorphone HCl 2 MG/ML VIAL IM ONE ×2 (21:26→21:30)
== END 2023-07-21 21:52 | disposition home or self-care (01) ==
LOC: FER 20:32
PROC: 3E023GC Introduction of Other Therapeutic Substance into Muscle, Percutaneous Approach (ICD-10-PCS; principal; 2023-07-21)
DX: M54.50 Low back pain, unspecified (principal); G89.29 Other chronic pain; F11.90 Opioid use, unspecified, uncomplicated
CPT/HCPCS: 96372; 99284-25

== ENCOUNTER 2023-07-22 20:04 | Emergency (ER) | payer OTHER, MEDICARE ==
[2023-07-22 20:14] VITALS: BP 147/92; PULSE 68; RESP 18; TEMP 98; BMI 33.3
[2023-07-22] MEDS ORDERED: HYDROmorphone HCl 2 MG/ML VIAL ONE (20:43)
[2023-07-22] MEDS: HYDROmorphone HCl 2 MG/ML VIAL IM STA (20:44)
== END 2023-07-22 20:51 | disposition home or self-care (01) ==
LOC: FER 20:04
PROC: 3E023GC Introduction of Other Therapeutic Substance into Muscle, Percutaneous Approach (ICD-10-PCS; principal; 2023-07-22)
DX: M96.1 Postlaminectomy syndrome, not elsewhere classified (principal); M54.50 Low back pain, unspecified; G89.29 Other chronic pain; F11.90 Opioid use, unspecified, uncomplicated
CPT/HCPCS: 99284-25

== ENCOUNTER 2023-07-24 20:12 | Emergency (ER) | payer OTHER, MEDICARE ==
[2023-07-24 20:24] VITALS: BP 135/73; PULSE 71; RESP 18; TEMP 97.4; BMI 33.3
== END 2023-07-24 20:40 | disposition home or self-care (01) ==
LOC: FER 20:12
DX: G89.29 Other chronic pain (principal); M54.9 Dorsalgia, unspecified
CPT/HCPCS: 99282-25

== ENCOUNTER 2023-08-02 13:44 | Emergency (ER) | payer OTHER, MEDICARE ==
[2023-08-02 14:02] VITALS: BP 151/99; PULSE 74; RESP 18; TEMP 98.6; BMI 33.2
[2023-08-02] MEDS ORDERED: HYDROmorphone HCL/PF 1 MG/ML VIAL ONE (14:07)
[2023-08-02] MEDS: HYDROmorphone HCl 2 MG/ML VIAL IM ONE (14:11)
== END 2023-08-02 14:16 | disposition home or self-care (01) ==
LOC: FER 13:44
PROC: 3E023NZ Introduction of Analgesics, Hypnotics, Sedatives into Muscle, Percutaneous Approach (ICD-10-PCS; principal; 2023-08-02)
DX: R10.9 Unspecified abdominal pain (principal)
CPT/HCPCS: 99284-25

== ENCOUNTER 2023-08-06 19:34 | Emergency (ER) | payer OTHER, MEDICARE ==
[2023-08-06 19:41] VITALS: BP 150/96; PULSE 69; RESP 18; TEMP 98.4; BMI 33.3
[2023-08-06] MEDS ORDERED: HYDROmorphone HCL/PF 1 MG/ML VIAL ONE (21:06)
[2023-08-06] MEDS: HYDROmorphone HCl 2 MG/ML VIAL IM ONE (21:09)
== END 2023-08-06 21:16 | disposition home or self-care (01) ==
LOC: FER 19:34
PROC: 3E023NZ Introduction of Analgesics, Hypnotics, Sedatives into Muscle, Percutaneous Approach (ICD-10-PCS; principal; 2023-08-06)
DX: M96.1 Postlaminectomy syndrome, not elsewhere classified (principal); G89.29 Other chronic pain; M54.50 Low back pain, unspecified
CPT/HCPCS: 99284-25

== ENCOUNTER 2023-08-15 13:49 | Emergency (ER) | payer OTHER, MEDICARE ==
[2023-08-15 13:56] VITALS: RESP 18; TEMP 97.7; BMI 33.2
[2023-08-15 14:49] LABS: EPI CELLS 2 /uL (0-25.1); HYALINE CASTS 0 /uL (0-3.1); PH,URINE 5.5 (5.0-8.0); URINE APPEARANCE CLEAR; URINE BACTERIA 0 /uL (0-1359); URINE BILIRUBIN NEGATIVE (NEGATIVE); URINE COLOR YELLOW; URINE GLUCOSE (UA) NEGATIVE (NEGATIVE); URINE KETONE NEGATIVE (NEGATIVE); URINE LEUK ESTERASE NEGATIVE (NEGATIVE); URINE NITRITE NEGATIVE (NEGATIVE); URINE PROTEIN NEGATIVE (NEGATIVE); URINE RBC 23 /uL (0-23.9); URINE WBC 2 /uL (0-25.8)
[2023-08-15] MEDS ORDERED: HYDROmorphone HCl 2 MG/ML VIAL ONE ×2 (14:54→16:17)
[2023-08-15] MEDS: HYDROmorphone HCl 2 MG/ML VIAL IM ONE ×2 (14:59→16:21)
[2023-08-15 16:21] VITALS: BP 176/101; PULSE 61
== END 2023-08-15 18:35 | disposition home or self-care (01) ==
LOC: JERFT 13:49 → JER 13:49 → JERFT 18:35
DX: M96.1 Postlaminectomy syndrome, not elsewhere classified (principal); G89.29 Other chronic pain; Z79.891 Long term (current) use of opiate analgesic
CPT/HCPCS: 81003; 99284-25

== ENCOUNTER 2023-08-18 21:31 | Emergency (ER) | payer OTHER, MEDICARE ==
[2023-08-18 21:42] VITALS: BP 123/67; PULSE 63; RESP 20; TEMP 98; BMI 32.8
[2023-08-18] MEDS ORDERED: HYDROmorphone HCl 2 MG/ML VIAL ONE (23:12)
[2023-08-18] MEDS: HYDROmorphone HCl 2 MG/ML VIAL IM STA (23:16)
== END 2023-08-18 23:26 | disposition home or self-care (01) ==
LOC: FER 21:31
PROC: 3E023NZ Introduction of Analgesics, Hypnotics, Sedatives into Muscle, Percutaneous Approach (ICD-10-PCS; principal; 2023-08-18)
DX: M54.9 Dorsalgia, unspecified (principal)
CPT/HCPCS: 99284-25

== ENCOUNTER 2023-08-20 02:05 | Emergency (ER) | payer OTHER, MEDICARE ==
[2023-08-20 02:11] VITALS: BP 112/80; PULSE 79; RESP 18; TEMP 97.7; BMI 32.5
[2023-08-20] MEDS ORDERED: HYDROmorphone HCl 2 MG/ML VIAL ONE (02:21)
[2023-08-20] MEDS: HYDROmorphone HCl 2 MG/ML VIAL IM STA (02:25)
== END 2023-08-20 02:41 | disposition home or self-care (01) ==
LOC: FER 02:05
PROC: 3E013NZ Introduction of Analgesics, Hypnotics, Sedatives into Subcutaneous Tissue, Percutaneous Approach (ICD-10-PCS; principal; 2023-08-20)
DX: M54.9 Dorsalgia, unspecified (principal); G89.29 Other chronic pain
CPT/HCPCS: 99284-25

== ENCOUNTER 2023-08-27 20:58 | Emergency (ER) | payer OTHER, MEDICARE ==
[2023-08-27 21:32] VITALS: BP 153/107; PULSE 99; RESP 20; TEMP 98.1; BMI 32.5
[2023-08-27] MEDS ORDERED: HYDROmorphone HCl 2 MG/ML VIAL ONE (23:22)
[2023-08-27] MEDS ORDERED: predniSONE 10 MG TABLET (UD) ONE (23:22)
[2023-08-27] MEDS: predniSONE 20 MG TABLET (UD) PO ONE (23:26)
[2023-08-27] MEDS: HYDROmorphone HCl 2 MG/ML VIAL IM ONE (23:26)
[2023-08-27] MEDS ORDERED: LIDOCAINE VISCOUS 2% ORAL/TOP 15 ML UNIT-DOSE CUP ONE (23:46)
== END 2023-08-27 23:53 | disposition home or self-care (01) ==
LOC: FER 20:58
PROC: 3E023NZ Introduction of Analgesics, Hypnotics, Sedatives into Muscle, Percutaneous Approach (ICD-10-PCS; principal; 2023-08-27)
DX: M54.9 Dorsalgia, unspecified (principal); J02.9 Acute pharyngitis, unspecified
CPT/HCPCS: 87651; 99284-25

== ENCOUNTER 2023-09-06 02:33 | Emergency (ER) | payer OTHER, MEDICARE ==
[2023-09-06 02:41] VITALS: BP 157/109; PULSE 72; RESP 18; TEMP 97.6; BMI 32.5
[2023-09-06] MEDS ORDERED: HYDROmorphone HCL/PF 1 MG/ML VIAL ONE (03:49)
[2023-09-06] MEDS: HYDROmorphone HCl 2 MG/ML VIAL IM ONE (03:54)
== END 2023-09-06 04:12 | disposition home or self-care (01) ==
LOC: FER 02:33
PROC: 3E023NZ Introduction of Analgesics, Hypnotics, Sedatives into Muscle, Percutaneous Approach (ICD-10-PCS; principal; 2023-09-06)
DX: M54.50 Low back pain, unspecified (principal); G89.29 Other chronic pain
CPT/HCPCS: 99284-25

== ENCOUNTER 2023-09-11 01:54 | Emergency (ER) | payer OTHER, MEDICARE ==
[2023-09-11 02:05] VITALS: BP 165/106; PULSE 74; RESP 16; TEMP 98.1; BMI 32.5
[2023-09-11] MEDS ORDERED: ONDANSETRON *ODT* 4 MG TABLET ONE (02:12)
[2023-09-11] MEDS: ONDANSETRON *ODT* 4 MG TABLET SL ONE (02:17)
[2023-09-11] MEDS ORDERED: HYDROmorphone HCL/PF 1 MG/ML VIAL ONE (02:24)
[2023-09-11] MEDS: HYDROmorphone HCl 2 MG/ML VIAL IM ONE (03:08)
== END 2023-09-11 03:10 | disposition home or self-care (01) ==
LOC: FER 01:54
PROC: 3E023NZ Introduction of Analgesics, Hypnotics, Sedatives into Muscle, Percutaneous Approach (ICD-10-PCS; principal; 2023-09-11)
DX: M54.50 Low back pain, unspecified (principal); G89.29 Other chronic pain
CPT/HCPCS: 99284-25; Q0162

== ENCOUNTER 2023-09-12 15:14 | Emergency (ER) | payer OTHER, MEDICARE ==
[2023-09-12 15:22] VITALS: BP 135/90; PULSE 73; RESP 18; TEMP 98.4; BMI 32.8
== END 2023-09-12 17:43 | disposition home or self-care (01) ==
LOC: JERFT 15:14
DX: M54.50 Low back pain, unspecified (principal); G89.29 Other chronic pain
CPT/HCPCS: 99283-25

== ENCOUNTER 2023-09-14 21:50 | Emergency (ER) | payer OTHER, MEDICARE ==
[2023-09-14 22:01] VITALS: PULSE 73; RESP 18; TEMP 98.1; BMI 33.1
[2023-09-14] MEDS ORDERED: HYDROmorphone HCl 2 MG/ML VIAL ONE (22:40)
[2023-09-14] MEDS: HYDROmorphone HCl 2 MG/ML VIAL IM ONE (22:43)
[2023-09-14 22:56] VITALS: BP 152/102
== END 2023-09-14 22:58 | disposition home or self-care (01) ==
LOC: FER 21:50
PROC: 3E013NZ Introduction of Analgesics, Hypnotics, Sedatives into Subcutaneous Tissue, Percutaneous Approach (ICD-10-PCS; principal; 2023-09-14)
DX: M54.50 Low back pain, unspecified (principal); G89.29 Other chronic pain
CPT/HCPCS: 99284-25

== ENCOUNTER 2023-09-23 12:12 | Emergency (ER) | payer OTHER, MEDICARE ==
[2023-09-23 12:19] VITALS: BP 166/93; PULSE 72; RESP 18; TEMP 98.2; BMI 33.1
[2023-09-23] MEDS ORDERED: HYDROmorphone HCL CARPU-JECT 2 MG/1 ML DISP.SYRIN ONE (13:22)
[2023-09-23] MEDS: HYDROmorphone HCl 2 MG/ML VIAL IM ONE (13:29)
== END 2023-09-23 13:30 | disposition home or self-care (01) ==
LOC: JERFT 12:12
PROC: 3E023NZ Introduction of Analgesics, Hypnotics, Sedatives into Muscle, Percutaneous Approach (ICD-10-PCS; principal; 2023-09-23)
DX: M54.2 Cervicalgia (principal)
CPT/HCPCS: 99284-25

== ENCOUNTER 2023-09-27 07:47 | Emergency (ER) | payer OTHER, MEDICARE ==
[2023-09-27 07:55] VITALS: BP 132/98; PULSE 75; RESP 18; TEMP 97.1; BMI 33.1
[2023-09-27] MEDS ORDERED: ACETAMINOPHEN 500 MG TABLET (FP) PO ONE (08:51)
== END 2023-09-27 09:00 | disposition home or self-care (01) ==
LOC: JER 07:47
DX: M54.50 Low back pain, unspecified (principal); G89.29 Other chronic pain; F11.20 Opioid dependence, uncomplicated
CPT/HCPCS: 99283-25